=== PATIENT | male | born 1980 | race Caucasian/White ===

== ENCOUNTER 2019-11-20 13:33 | Emergency (ER) | payer OTHER, BC ==
[~2019-11-20] VITALS: Ht 180.3 cm; Wt 86.2 kg
[2019-11-20] MEDS ORDERED: KEFLEX500 M1 PO (15:41)
[2019-11-20] MEDS ORDERED: NORCO 5-325 TA1 EAC2 PO (15:41)
[2019-11-20 15:56] VITALS: BP 121/81
== END 2019-11-20 15:57 | disposition home or self-care (01) ==
LOC: M.ERS 13:33
DX: S61.211A Laceration without foreign body of left index finger without damage to nail, initial encounter (principal); W26.8XXA Contact with other sharp object(s), not elsewhere classified, initial encounter; Y93.89 Activity, other specified; Y92.89 Other specified places as the place of occurrence of the external cause; Y99.8 Other external cause status